=== PATIENT | male | born 1955 | race Hispanic/Latino ===

== ENCOUNTER → 2017-12-31 | Outpatient (CLI) | payer OTHER ==
[~2017-12-31] MED LIST: IOPAMIDOL 370 MG/ML 200 ML INFUS..BTL INJ ONE; SODIUM CHLORIDE 0.9% 250ML 250 ML ONE
[2017-12-31 09:59] LABS: BLOOD UREA NITROGEN 19 mg/dL (7-26); BUN/CREATININE RATIO 17 (6-25); CREATININE, SERUM 1.13 mg/dL (0.72-1.25); EST GLOMERULAR FILTRATION RATE > 60 ML/MIN (60-)
--- NOTE | 2017-12-31 11:41 | Diagnostic Imaging Report ---
PROCEDURE:TESTICULAR ULTRASOUND COMPARISON:None. INDICATIONS:EPIDIDYMITIS TECHNIQUE: Neal-scale and color Doppler images of the testicles and scrotal contents were obtained. Duplex imaging with spectral waveform analysis was performed of the testicular arteries and veins. FINDINGS: RIGHT SCROTUM: Testicle: 3.2 x 1.3 x 2.6 cm. Homogeneous echotexture without mass. Normal color Doppler and spectral Doppler waveforms. Epididymal head: 0.9 x 0.7 x 0.7 cm. Homogeneous echotexture without mass. Normal vascularity. Right epididymal head 0.3 x 0.2 x 0.6 cm cyst or spermatocele. Hydrocele: None Varicocele: None LEFT SCROTUM: Testicle: 2.5 x 1.3 x 1.8 cm. Homogeneous echotexture without mass. Normal color Doppler and spectral Doppler waveforms. Epididymal head: 0.6 x 1 x 1 cm. Homogeneous echotexture without mass. Normal vascularity. Hydrocele: None Varicocele: None No inguinal hernias are identified with Valsalva. CONCLUSION: No evidence of testicular torsion. No evidence of orchitis or epididymitis. Dictated by: Edgar Matos M.D. on 12/31/2017 at 11:42 Electronically approved by: Edgar Matos M.D. on 12/31/2017 at 11:42
--- NOTE | 2017-12-31 11:42 | Diagnostic Imaging Report ---
PROCEDURE:TESTICULAR DOPPLER ULTRASOUND COMPARISON:None. INDICATIONS:EPIDIDYMITIS FINDINGS: Please see same day testicular ultrasound for full report. CONCLUSION: Please see same day testicular ultrasound for full report. Dictated by: Edgar Matos M.D. on 12/31/2017 at 11:43 Electronically approved by: Edgar Matos M.D. on 12/31/2017 at 11:43
--- NOTE | 2017-12-31 12:28 | Diagnostic Imaging Report ---
PROCEDURE: CT ABDOMEN \T\ PELVIS W/WO CONTRAST TECHNIQUE: The abdomen and pelvis were scanned utilizing a multidetector helical scanner from the diaphragm to the lesser trochanter before and after the IV administration of 150 cc of Isovue 370 and the oral administration of 900cc of water. Coronal and sagittal multiplanar reformations were obtained. 3D volume renderings were created on a stand alone workstation. DLP: 751.3 mGy-cm COMPARISON: None. INDICATIONS: HEMATURIA FINDINGS: LOWER THORAX: Coronary artery calcifications. Lung bases are clear. HEPATOBILIARY: No focal hepatic lesions. No biliary ductal dilatation. No radiopaque gallstones. Focal narrowing of the gallbladder fundus likely related to adenomyomatosis. SPLEEN: No splenomegaly. PANCREAS: No focal masses or ductal dilatation. ADRENALS: No adrenal nodules. KIDNEYS/URETERS: No hydronephrosis, stones, or solid mass lesions. Duplex left renal collecting system. The ureters join at the left ureteral vesicular junction. The upper urinary collecting systems are poorly opacified without filling defect. The majority of the right ureter with exception of the proximal portion are well-opacified without filling defect. The left ureter draining the superior pole is fully opacified without filling defect. The ureter draining the inferior pole is mostly opacified without filling defects. PELVIC ORGANS/BLADDER: Prostate is enlarged measuring 4.5 x 4.4 x 4.7 cm (48.4 cc). CT suboptimal evaluation of prostate pathology. Right testicle appears to have migrated superiorly into the right inguinal canal since same day ultrasound. No inflammatory stranding is noted surrounding the right inguinal canal. Left testicle is located within the scrotal sac. PERITONEUM / RETROPERITONEUM: No free air or fluid. LYMPH NODES: No lymphadenopathy. VESSELS: Mild scattered atherosclerotic calcifications. No abdominal aortic aneurysm GI TRACT: No distention or wall thickening. BONES AND SOFT TISSUES: No acute or suspicious osseous lesions. Soft tissues are unremarkable. IMPRESSION: 1. No urinary tract calculi, renal masses, or filling defects in the opacified portions of the urinary collecting system. 2. Duplex left renal collecting system. The ureters join at the ureterovesicular junction. 3. Interval migration of the right testicle into the right inguinal since same day scrotal ultrasound. 4. Mildly enlarged prostate. Dictated by: Edgar Matos M.D. on 12/31/2017 at 12:28 Electronically approved by: Edgar Matos M.D. on 12/31/2017 at 12:28
== END ==
LOC: US 09:06
PROVIDERS: ATTEND Urology
DX: N45.1 Epididymitis (principal); R31.0 Gross hematuria
CPT/HCPCS: 36415; 74178; 76870; 82565; 84520; 93976; J7050; Q9967

== ENCOUNTER → 2018-12-02 | Emergency (ER) | payer OTHER ==
[~2018-12-02] VITALS: Ht 162.6 cm; Wt 70.3 kg
[~2018-12-02] MED LIST changes: -IOPAMIDOL 370 MG/ML 200 ML INFUS..BTL INJ ONE; +LISINOPRIL-HCT1 EACH PO; -SODIUM CHLORIDE 0.9% 250ML 250 ML ONE
--- OUTSIDE RECORDS SUMMARY | 2018-12-02 10:14 | XMS REPORT ---
[facility] Address Unknown Phone Unavailable Care Team Providers Care Manager Steel Name Role Phone MARY GREEN Unavailable Unavailable Problems This patient has no known problems. Allergies, Adverse Reactions, Alerts This patient has no known allergies or adverse reactions. Medications This patient has no known medications. Results Test Description Test Time Test Comments Text Results Atomic Results Result Comments TESTICULAR [place] [address] Patient Name: MICKIE BECKMAN MR #: [id number] : 1955 Age/Sex: 62/M Req #: [id number] Adm Physician: Ordered by: MARY GREEN MD Report #: [id number] Location: Room/Bed: Procedure: [id number] US/US TESTICULAR Exam Date: 12/31/17 Exam Time: 948 REPORT STATUS: Signed PROCEDURE: TESTICULAR ULTRASOUND COMPARISON: None. INDICATIONS: EPIDIDYMITIS TECHNIQUE: Neal-scale and color Doppler images of the testicles and scrotal contents were obtained. Duplex imaging with spectral waveform analysis was performed of the testicular arteries and veins. FINDINGS: RIGHT SCROTUM: Testicle: 3.2 x 1.3 x 2.6 cm. Homogeneous echotexture without mass. Normal color Doppler and spectral Doppler waveforms. Epididymal head: 0.9 x 0.7 x 0.7 cm. Homogeneous echotexture without mass. Normal vascularity. Right epididymal head 0.3 x 0.2 x 0.6 cm cyst or spermatocele. Hydrocele: None Varicocele: None LEFT SCROTUM: Testicle: 2.5 x 1.3 x 1.8 cm. Homogeneous echotexture without mass. Normal color Doppler and spectral Doppler waveforms. Epididymal head: 0.6 x 1 x 1 cm. Homogeneous echotexture without mass. Normal vascularity. Hydrocele: None Varicocele: None No inguinal hernias are identified with Valsalva. CONCLUSION: No evidence of testicular torsion. No evidence of orchitis or epididymitis. Dictated by: Edgar Wright M.D. on 12/31/2017 at 11:42 Electronically approved by: Edgar Wright M.D. on 12/31/2017 at 11:42 Dictated By: EDGAR WRIGHT MD 1142 Transcribed By: CAMILLE on 12/31/17 1142 COPY TO: MARY GREEN MD US TESTICULAR DOPPLER LTD [place] [address] Patient Name: MICKIE BECKMAN MR #: [id number] : 1955 Age/Sex: 62/M Req #: [id number] Adm Physician: Ordered by: MARY GREEN MD Report #: [id number] Location: Room/Bed: Procedure: [id number] US/US TESTICULAR DOPPLER LTD Exam Date: 12/31/17 Exam Time: 948 REPORT STATUS: Signed PROCEDURE: TESTICULAR DOPPLER ULTRASOUND COMPARISON: None. INDICATIONS: EPIDIDYMITIS FINDINGS: Please see same day testicular ultrasound for full report. CONCLUSION: Please see same day testicular ultrasound for full report. Dictated by: Edgar Wright M.D. on 12/31/2017 at 11:43 Electronically approved by: Edgar Wright M.D. on 12/31/2017 at 11:43 Dictated By: EDGAR WRIGHT MD 1143 Transcribed By: CAMILLE on 12/31/17 1143 COPY TO: MARY GREEN MD CT ABDOMEN/PELVIS WOW [place] [address] Patient Name: MICKIE BECKMAN MR #: [id number] : 1955 Age/Sex: 62/M Req #: [id number] Adm Physician: Ordered by: MARY GREEN MD Report #: [id number] Location: Room/Bed: Procedure: [id number] CT/CT ABDOMEN/PELVIS WOW Exam Date: 12/31/17 Exam Time: 1055 REPORT STATUS: Signed PROCEDURE: CT ABDOMEN T PELVIS W/WO CONTRAST TECHNIQUE: The abdomen and pelvis were scanned utilizing a multidetector helical scanner from the diaphragm to the lesser trochanter before and after the IV administration of 150 cc of Isovue 370 and the oral administration of 900cc of water. Coronal and sagittal multiplanar reformations were obtained. 3D volume renderings were created on a stand alone workstation. DLP: 751.3 mGy-cm COMPARISON: None. INDICATIONS: HEMATURIA FINDINGS: LOWER THORAX: Coronary artery calcifications. Lung bases are clear. HEPATOBILIARY: No focal hepatic lesions. No biliary ductal dilatation. No radiopaque gallstones. Focal narrowing of the gallbladder fundus likely related to adenomyomatosis. SPLEEN: No splenomegaly. PANCREAS: No focal masses or ductal dilatation. ADRENALS: No adrenal nodules. KIDNEYS/URETERS: No hydronephrosis, stones, or solid mass lesions. Duplex left renal collecting system. The ureters join at the left ureteral vesicular junction. The upper urinary collecting systems are poorly opacified without filling defect. The majority of the right ureter with exception of the proximal portion are well-opacified without filling defect. The left ureter draining the superior pole is fully opacified without filling defect. The ureter draining the inferior pole is mostly opacified without filling defects. PELVIC ORGANS/BLADDER: Prostate is enlarged measuring 4.5 x 4.4 x 4.7 cm (48.4 cc). CT suboptimal evaluation of prostate pathology. Right testicle appears to have migrated superiorly into the right inguinal canal since same day ultrasound. No inflammatory stranding is noted surrounding the right inguinal canal. Left testicle is located within the scrotal sac. PERITONEUM / RETROPERITONEUM: No free air or fluid. LYMPH NODES: No lymphadenopathy. VESSELS: Mild scattered atherosclerotic calcifications. No abdominal aortic aneurysm GI TRACT: No distention or wall thickening. BONES AND SOFT TISSUES: No acute or suspicious osseous lesions. Soft tissues are unremarkable. IMPRESSION: 1. No urinary tract calculi, renal masses, or filling defects in the opacified portions of the urinary collecting system. 2. Duplex left renal collecting system. The ureters join at the ureterovesicular junction. 3. Interval migration of the right testicle into the right inguinal since same day scrotal ultrasound. 4. Mildly enlarged prostate. Dictated by: Edgar Wright M.D. on 12/31/2017 at 12:28 Electronically approved by: Edgar Wright M.D. on 12/31/2017 at 12:28 Dictated By: EDGAR WRIGHT MD 1228 Transcribed By: CAMILLE on 12/31/17 1228 COPY TO: MARY GREEN MD
[2018-12-02 11:08] LABS: ANION GAP 10.6 mmol/L (8-16); BLOOD UREA NITROGEN 18 mg/dL (7-26); BUN/CREATININE RATIO 15 (6-25); CALCIUM 9.1 mg/dL (8.4-10.2); CARBON DIOXIDE 22 mmol/L (22-29); CHLORIDE 109 mmol/L (98-107); CREATININE, SERUM 1.21 mg/dL (0.72-1.25); EST GLOMERULAR FILTRATION RATE > 60 ML/MIN (60-); GLUCOSE 93 mg/dL (74-118); POTASSIUM 5.6 mmol/L (3.5-5.1); SODIUM 136 mmol/L (136-145)
[2018-12-02 13:05] VITALS: BP 122/79
== END | disposition home or self-care (01) ==
LOC: ER 10:11
DX: E87.5 Hyperkalemia (principal); I10 Essential (primary) hypertension; E78.00 Pure hypercholesterolemia, unspecified
CPT/HCPCS: 36415; 80048; 99283

== ENCOUNTER → 2019-04-13 | Outpatient (CLI) | payer OTHER ==
[~2019-04-13] MED LIST changes: +IOPAMIDOL 370 MG/ML 200 ML INFUS..BTL INJ ONE; +SODIUM CHLORIDE 0.9% 250ML 250 ML ONE; +SODIUM CHLORIDE 0.9% 500ML 500 ML ONE
[2019-04-13 09:55] LABS: CREATININE, SERUM 1.33 mg/dL (0.72-1.25)
--- NOTE | 2019-04-13 11:49 | Diagnostic Imaging Report ---
EXAM: CT Abdomen and Pelvis WITH intravenous contrast - hematuria protocol INDICATION: Hematuria COMPARISON: CT abdomen and pelvis of 12/31/2017 TECHNIQUE: Abdomen and pelvis were scanned utilizing a multidetector helical scanner from the lung base to the pubic symphysis after administration of IV contrast. Coronal and sagittal reformations were obtained. Routine protocol was performed. Scan was performed when during portal venous phase. IV CONTRAST: 100 mL of Isovue 370 ORAL CONTRAST: None COMPLICATIONS: None RADIATION DOSE: Total DLP: 997.90 mGy*cm Dose modulation, iterative reconstruction, and/or weight based adjustment of the mA/kV was utilized to reduce the radiation dose to as low as reasonably achievable. FINDINGS: LOWER THORAX: Mild bibasilar dependent subsegmental atelectasis. No focal consolidation. No suspicious nodules. Atherosclerotic calcifications in the coronary arteries. HEPATOBILIARY: No focal hepatic lesions. No biliary ductal dilatation. The gallbladder appears unremarkable. SPLEEN: No splenomegaly. PANCREAS: No focal masses or ductal dilatation. ADRENALS: No adrenal nodules. KIDNEYS/URETERS: No hydronephrosis, stones, or solid mass lesions. 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 Delayed excretory phase images show opacification of the majority of the ureters with the exception of the proximal right ureter. No evidence of urothelial mass lesion. PELVIC ORGANS/BLADDER: There is enlargement of the prostate gland to 5.5 cm with nodular indentation of the posterior bladder. No bladder wall thickening or bladder mass. PERITONEUM / RETROPERITONEUM: No free air or fluid. LYMPH NODES: No lymphadenopathy. VESSELS: Unremarkable. GI TRACT: Mild colonic diverticulosis with no CT evidence of diverticulitis. No abnormal bowel wall thickening or bowel distention. BONES AND SOFT TISSUES: Moderate degenerative changes of the visualized spine. No suspicious lytic or blastic lesions. IMPRESSION: Duplicated left collecting system. No hydronephrosis, renal mass, renal calculi, or urothelial mass lesion. Prostatomegaly. Signed by: Diogenes Murillo MD on 04/13/2019 11:45 AM
== END ==
LOC: CT 08:50
PROVIDERS: ATTEND Urology
DX: R31.0 Gross hematuria (principal)
CPT/HCPCS: 36415; 74178; 82565; 84520; 96360; J7040; J7050; Q9967